=== PATIENT | male | born 1980 | race Caucasian/White ===

== ENCOUNTER 2023-05-02 11:26 | Emergency (ER) | payer SELFPAY ==
[~2023-05-02] VITALS: Ht 185.4 cm; Wt 89.8 kg
[2023-05-02 11:40] VITALS: BP 126/93
[2023-05-02 11:45] VITALS: BP 120/83
[2023-05-02] MEDS ORDERED: IBUPROFEN 800 MG/TAB PO ONE (11:55)
[2023-05-02] MEDS ORDERED: oxyCODONE 5MG/ ACETAMINOPHEN 325MG TAB PO ONE (11:55)
[2023-05-02 12:00] VITALS: BP 124/90
[2023-05-02] MEDS ORDERED: TRAMADOL HYDROC50 M1 PO (12:50)
[2023-05-02] MEDS ORDERED: MOTRIN800 MG PO (12:50)
[2023-05-02 12:59] VITALS: BP 124/90
== END 2023-05-02 13:06 | disposition home or self-care (01) | DRG 605 ==
LOC: ED 11:26
DX: S80.212A Abrasion, left knee, initial encounter (principal); M25.462 Effusion, left knee; W01.0XXA Fall on same level from slipping, tripping and stumbling without subsequent striking against object, initial encounter